=== PATIENT | female | born 1945 | race Caucasian/White ===

== ENCOUNTER 2016-08-27 20:44 | Emergency (ER) | payer MEDICARE ==
--- NOTE | 2016-08-27 21:15 | ER Document Report ---
ED Medical Screen (RME) - General Stated Complaint: RIGHT EYE INJURY Time seen by provider: 21:13 Mode of Arrival: Ambulatory Information source: Patient Notes: 71-year-old female presents to ED for pain in her right eye after a a branch stuck in her eye. She has blood noted to the inner aspect of her eye and she states that there was blood running out of her eye earlier. She is able to still see through the eye. No medical history with her right eye. I have greeted and performed a rapid initial assessment of this patient. A comprehensive ED assessment and evaluation of the patient, analysis of test results and completion of medical decision making process will be conducted by an additional ED providers. - Related Data Allergies/Adverse Reactions: No Known Allergies Allergy (Unverified 08/27/16 21:11)
--- NOTE | 2016-08-27 21:54 | ER Document Report ---
ED Eye Complaint - General Chief Complaint: Eye Injury Stated Complaint: RIGHT EYE INJURY Time seen by provider: 21:45 Mode of Arrival: Ambulatory Notes: Patient is a 71-year-old female that comes emergency department for chief complaint of injury to her right eye, she states she was walking in the dark and accidentally poked her right eye over the inner aspect with a stick/branch, she states that she had a tiny amount of bleeding coming from the eye, she states that she sees a few extra floaters but denies any difficulty seeing, visual loss, she states that she has some mild pain to the eye but no severe pain. Patient wears bifocal glasses, was not wearing them at the time of injury. TRAVEL OUTSIDE OF THE [place] IN LAST 30 DAYS: No - Related Data Allergies/Adverse Reactions: No Known Allergies Allergy (Verified 08/27/16 22:35) Past Medical History - General Information source: Patient - Social History Smoking Status: Never Smoker Chew tobacco use (# tins/day): No Frequency of alcohol use: None Drug Abuse: None Lives with: Family Family History: Reviewed & Not Pertinent Patient has suicidal ideation: No Patient has homicidal ideation: No - Medical History Medical History: Negative Renal/ Medical History: Denies: Hx Peritoneal Dialysis Surgical Hx: Negative - Immunizations Immunizations up to date: Yes Hx Diphtheria, Pertussis, Tetanus Vaccination: Yes Review of Systems - Review of Systems Constitutional: No symptoms reported EENT: See HPI Cardiovascular: No symptoms reported Respiratory: No symptoms reported Gastrointestinal: No symptoms reported Genitourinary: No symptoms reported Female Genitourinary: No symptoms reported Musculoskeletal: No symptoms reported Skin: No symptoms reported Hematologic/Lymphatic: No symptoms reported Neurological/Psychological: No symptoms reported Physical Exam - Vital signs Vitals: Temp Pulse Resp BP Pulse Ox 97.9 F 81 14 145/71 H 97 08/27/16 21:16 08/27/16 21:16 08/27/16 21:16 08/27/16 21:16 08/27/16 21:16 Interpretation: Normal - General General appearance: Appears well In distress: None - HEENT Head: Normocephalic, Atraumatic Eyes: Other - Mildly injected right sclera Conjunctiva: Other - Mildly injected with subconjunctival hemorrhage medially in the right eye, no bleeding, no foreign body noted Extraocular movements intact: Yes Eyelashes: Normal Pupils: PERRL Visual acuity- Right eye: 20/50 Visual acuity- Left eye: 20/40 Visual acuity- Both eyes: 20/40 Corrective lenses worn: No Anterior chamber: Normal. No: Hyphema Nerve palsy: No Visual doss normal: Yes Ears: Normal Mucous membranes: Normal Pharynx: Normal Neck: Normal - Respiratory Respiratory status: No respiratory distress Chest status: Nontender Breath sounds: Normal. No: Decreased air movement, Wheezing - Cardiovascular Rhythm: Regular. No: Tachycardia Heart sounds: Normal auscultation, S1 appreciated, S2 appreciated Murmur: No - Abdominal Inspection: Normal Distension: No distension Bowel sounds: Normal Tenderness: Nontender. No: Tender, Guarding - Back Back: Normal, Nontender. 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 Patient will be started on antibiotics, referred for close ophthalmology follow-up, discussed return precautions, patient states satisfaction and agreement. - Vital Signs Vital signs: Temp Pulse Resp BP Pulse Ox 97.5 F 69 16 120/70 96 08/27/16 23:15 08/27/16 23:15 08/27/16 23:15 08/27/16 23:15 08/27/16 23:15 Discharge - Discharge Clinical Impression: Right eye injury Qualifiers: Encounter type: initial encounter Qualified Code(s): S05.91XA - Unspecified injury of right eye and orbit, initial encounter Subconjunctival hemorrhage Qualifiers: Laterality: right Qualified Code(s): H11.31 - Conjunctival hemorrhage, right eye Condition: Stable Disposition: HOME, SELF-CARE Additional Instructions: No injuries to the cornea, injuries to the front part of the eye chamber, or foreign bodies are seen. Use the topical antibiotic as directed to avoid an infection. Use the pain medication or drop if needed. Follow-up in the next 2-3 days with ophthalmology for recheck (see referral). The bleeding under the white part of the eye should absorbent with time. Return to the emergency department for any concerning or worsening symptoms including swelling of the eye or eyelid, loss of vision, etc. Prescriptions: Besifloxacin HCl [Besivance Drops] 1 drop OP TID #1 bottle Ketorolac Tromethamine [Acular] 5 ml OP ASDIR PRN #1 drops PRN Reason: Referrals: CECY MCPHERSON MD [ACTIVE STAFF] - 08/29/16
[2016-08-27] MEDS ORDERED: TETRACAINE HCL 0.5% OPH SOLN 2 ML OD ONE (22:25)
[2016-08-27] MEDS ORDERED: TETRACAINE HCL 0.5% OPH SOLN 2 ML ONE (22:27)
[2016-08-27] MEDS ORDERED: HYDROCODONE/ACETAMINOPHEN 5-325 MG 6 TAB/DSPK PO PRN (22:39)
[2016-08-27] MEDS ORDERED: BESIFLOXACIN HCL 0.6% OPH SUSP 5 ML BOTTLE OD ONE (22:40)
[2016-08-27 23:54] VITALS: BP 120/70
== END 2016-08-27 23:20 | disposition home or self-care (01) ==
LOC: ER 20:44
DX: S05.91XA Unspecified injury of right eye and orbit, initial encounter (principal); H11.31 Conjunctival hemorrhage, right eye; W22.8XXA Striking against or struck by other objects, initial encounter; H53.8 Other visual disturbances
CPT/HCPCS: 99283; A9270 ×2